=== PATIENT | female | born 1945 | race Two or more races ===

== ENCOUNTER 2022-07-16 08:29 | Outpatient (CLI) | payer MEDICARE, OTHER ==
[2022-07-16 09:38] LABS: BILIRUBIN,TOTAL 1.7 mg/dL (0.2-1.0); CALCIUM, SERUM 8.9 mg/dL (8.5-10.1); CREATININE 0.7 mg/dL (0.6-1.3); TOTAL PROTEIN, SERUM 7.2 g/dL (6.4-8.2)
== END 2022-07-16 23:59 | disposition home or self-care (01) ==
LOC: LAB 08:29
DX: E11.9 Type 2 diabetes mellitus without complications (principal); E78.5 Hyperlipidemia, unspecified
CPT/HCPCS: 36415; 80053-TC; 80061-TC; J1644